=== PATIENT | female | born 2005 | race Caucasian/White ===

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

== ENCOUNTER → 2024-05-21 11:23 | Outpatient (REF) | payer BC, SELFPAY | LOC: CPAP 11:23 | PROVIDERS: ATTENDING PHYSICIAN Advanced Practice Midwife | DX: Z01.419 Encounter for gynecological examination (general) (routine) without abnormal findings (principal) | CPT/HCPCS: G0123 ==

== ENCOUNTER → 2024-05-21 16:38 | Outpatient (REF) | payer BC, SELFPAY | LOC: CLAB 16:38 | PROVIDERS: ATTENDING PHYSICIAN Advanced Practice Midwife | DX: Z11.3 Encounter for screening for infections with a predominantly sexual mode of transmission (principal); N76.0 Acute vaginitis | CPT/HCPCS: 81513; 87481; 87661 ==